=== PATIENT | female | born 1965 | race African-American/Black ===

== ENCOUNTER 2019-04-22 18:40 | Emergency (ER) | payer MEDICAID ==
[~2019-04-22] VITALS: Ht 167.6 cm; Wt 63.0 kg
[2019-04-22 18:55] VITALS: BP 127/74
== END 2019-04-22 19:28 | disposition left against medical advice (07) ==
LOC: ER 18:40
DX: L29.9 Pruritus, unspecified (principal); J45.909 Unspecified asthma, uncomplicated; K50.90 Crohn's disease, unspecified, without complications; Z88.0 Allergy status to penicillin
CPT/HCPCS: 99281

== ENCOUNTER 2025-02-05 13:04 | Emergency (ER) | payer MEDICAID ==
[~2025-02-05] VITALS: Ht 167.6 cm; Wt 59.0 kg
[2025-02-05 13:06] VITALS: O2SAT 96
[2025-02-05] MEDS: ACETAMINOPHEN 325MG TABLET PO ONE (15:04)
[2025-02-05] MEDS ORDERED: NAPR-681 PO (15:20)
[2025-02-05] MEDS: KETOROLAC 15MG/ML VIAL IM ONE (15:41)
[2025-02-05 16:15] VITALS: BP 165/85; PULSE 101; RESP 18; TEMP 36.9; O2SAT 100
== END 2025-02-05 16:17 | disposition home or self-care (01) ==
LOC: ER 13:04
DX: S00.93XA Contusion of unspecified part of head, initial encounter (principal); M25.562 Pain in left knee; M79.621 Pain in right upper arm; M25.511 Pain in right shoulder; Y99.8 Other external cause status; I10 Essential (primary) hypertension; J45.909 Unspecified asthma, uncomplicated; R51.9 Headache, unspecified; Z88.0 Allergy status to penicillin; Z88.1 Allergy status to other antibiotic agents; Z98.890 Other specified postprocedural states; Y04.8XXA Assault by other bodily force, initial encounter; Y93.89 Activity, other specified; Y92.89 Other specified places as the place of occurrence of the external cause
CPT/HCPCS: 73030; 73060; 73560; 70450; 96372; 99285; J1885; Z7610